=== PATIENT | female | born 1955 | race Caucasian/White ===

== ENCOUNTER 2023-05-16 08:11 | Outpatient (CLI) | payer MEDICARE, SELFPAY ==
--- NOTE | ~2023-05-16 | XR_ITS ---
Left Shoulder Technique: AP and scapular Y views were obtained. Clinical History: Pain Findings: No fracture or dislocation is seen. Suture anchor noted at the humeral head. Osseous alignm ent is anatomic. There is mild degenerative change of the glenohumeral and acromioclavicular joints.. Soft tissues are unremarkable. Impression: Mild degenerative changes, as above. Suture anchor at the humeral head. Reviewed, dictated and finalized at location . Impression: Mild degenerative changes, as above. Suture anchor at the humeral head.
== END 2023-05-16 08:12 | disposition home or self-care (01) ==
PROVIDERS: PCP Internal Medicine; Visit Provider Orthopaedic Surgery
DX: M19.012 Primary osteoarthritis, left shoulder (principal)
CPT/HCPCS: 73030